=== PATIENT | male | born 1955 | race Caucasian/White ===

== ENCOUNTER → 2017-03-16 | Outpatient (CLI) | payer OTHER ==
[~2017-03-16] MED LIST: AMLO5TAB2 PO; ATOR20TA9 PO; BENA1TAB11 PO; CEFD300C37 PO; CHOL200024 PO; HYDR-3240 PO; IRON1TAB60 PO; LEVO750T26 PO; OMNIPAQUE 350 MG/ML, 150 ML BOTTLE ONE; ONDA4TAB10 PO; OXYB5TAB33 PO
== END | disposition home or self-care (01) ==
LOC: CFH 09:28
PROVIDERS: ATTEND Urology
DX: Q61.02 Congenital multiple renal cysts (principal); K57.30 Diverticulosis of large intestine without perforation or abscess without bleeding
CPT/HCPCS: 74178; Q9967

== ENCOUNTER 2017-05-06 08:31 | Day surgery (SDC) | payer OTHER ==
[~2017-05-06] VITALS: Ht 175.3 cm; Wt 134.8 kg
[~2017-05-06 08:31] MED LIST changes: +BENA40TA2 PO; -OMNIPAQUE 350 MG/ML, 150 ML BOTTLE ONE
[2017-05-06] MEDS ORDERED: TAMS0.4C2 PO (09:05)
[2017-05-06 09:12] VITALS: BP 154/88
[2017-05-06] MEDS ORDERED: LACTATED RINGERS 1,000 ML IV SCH (09:50)
[2017-05-06 10:22] LABS: ASPARTATE AMINO TRANSFERASE 19 U/L (15-37); BLOOD UREA NITROGEN 5 mg/dL (7-18)
[2017-05-06] MEDS ORDERED: PROPOFOL 10 MG/ML, 50ML ONE (11:25)
[2017-05-06] MEDS ORDERED: MIDAZOLAM 1 MG/ML, 2ML ONE (11:25)
[2017-05-06] MEDS: hydrALAzine 20 MG/ML, 1ML IV PRN ×2 (12:29→12:54)
== END 2017-05-06 14:00 ==
LOC: OUT 08:31
PROVIDERS: ATTEND Internal Medicine Gastroenterology
DX: Z09 Encounter for follow-up examination after completed treatment for conditions other than malignant neoplasm (principal); D12.0 Benign neoplasm of cecum; D12.2 Benign neoplasm of ascending colon; D12.5 Benign neoplasm of sigmoid colon; K57.30 Diverticulosis of large intestine without perforation or abscess without bleeding; K64.8 Other hemorrhoids; Z86.010 Personal history of colon polyps; Z90.49 Acquired absence of other specified parts of digestive tract; Z98.890 Other specified postprocedural states
CPT/HCPCS: 36415; 45380; 45385; 80053; 88305; 93005; J0360; J2250; J2704; J7120